=== PATIENT | female | born 1955 | race African-American/Black ===

== ENCOUNTER → 2016-12-26 | Outpatient (CLI) | payer BC, OTHER ==
[2016-09-04 15:00] VITALS: BP 114/60
[~2016-12-26] MED LIST: AMLO5TAB4 PO; ASPI-482 PO; BACL10TA PO; HYDR-971 PO; HYDR12.58 PO; IBUP-1007 PO; ONDA4TAB7 PO; PANT40TA3 PO
--- NOTE | 2016-12-26 11:21 | KCIC ---
Ankle left, three views Indication: Left ankle pain and swelling. Time of exam 11:05 a.m. Three views of the left ankle were obtained. The alignment is normal. Ankle mortise is well maintained. The talar dome is smooth. No fracture or dislocation is seen. There is a plantar calcaneal spur. There appears to be moderate soft tissue swelling both medially and laterally. Impression: Soft tissue swelling. No acute bony abnormality is detected. Electronically signed by: Elian Ordoñez MD (Dec 26, 2016 11:20:14)
== END | disposition home or self-care (01) ==
LOC: KCIC 10:51
PROVIDERS: ATTEND Family Medicine
DX: M25.572 Pain in left ankle and joints of left foot (principal)
CPT/HCPCS: 73610

== ENCOUNTER → 2017-01-01 | Outpatient (CLI) | payer BC, OTHER ==
[2016-09-04 15:00] VITALS: BP 114/60
--- NOTE | 2017-01-01 14:38 | KCIC ---
PROCEDURE MRI lumbar spine without contrast. HISTORY Low back pain radiating to left leg. Symptoms for 2-3 months. TECHNIQUE Sagittal T1, sagittal T2, sagittal STIR, axial T1, and axial T2 sequences are provided. COMPARISON None. FINDINGS There is mild levo curvature apex at L3-L4. There is no worrisome marrow lesion. There is minimal endplate edema at L4-L5. There is diffuse disc desiccation. There is narrowing of the interspace most notably at L3-L4 and L4-L5. Minimal subcutaneous edema is noted. Numbering system assumes 5 lumbar type vertebral bodies. Findings by individual level are as follows: L1-L2: Mild disc bulge and facet hypertrophy are noted with mild left foraminal narrowing. L2-L3: Disc bulge and mild facet hypertrophy are noted. Midline AP diameter of the thecal sac is 12 millimeters, minimally narrowed. There is mild right lateral recess narrowing. There is mild to moderate bilateral foraminal narrowing. L3-L4: There is a diffuse disc bulge. There is mild facet and ligamentum flavum hypertrophy. There is mild right lateral recess narrowing. There is no canal stenosis, midline AP diameter of the thecal sac 13 millimeters. Foraminal narrowing is high-grade on the right and mild to moderate on the left. L4-L5: There is a diffuse disc bulge. There is mild facet hypertrophy. Midline AP diameter of the thecal sac is narrowed to 11 millimeters. There is left lateral recess narrowing. There is moderate to severe foraminal narrowing. L5-S1: Disc bulge is eccentric to the right. There is facet hypertrophy. There is no canal stenosis. There is moderate to severe right foraminal narrowing. IMPRESSION Degenerative disc disease and facet hypertrophy are noted throughout the lumbar spine. There is no high-grade canal stenosis although there are several levels of foraminal narrowing, as described above. Electronically signed by: Donnell Bernal MD (Jan 01, 2017 14:37:29)
== END | disposition home or self-care (01) ==
LOC: KCIC MRI 12:42
PROVIDERS: ATTEND Family Medicine
DX: M51.36 Other intervertebral disc degeneration, lumbar region (principal)
CPT/HCPCS: 72148

== ENCOUNTER → 2017-01-29 | Outpatient (CLI) | payer BC, OTHER ==
[2016-09-04 15:00] VITALS: BP 114/60
--- NOTE | 2017-01-29 14:46 | KCIC ---
PROCEDURE MR of the left midfoot HISTORY Left foot pain at the tarsal region and across the top of the foot. Swelling. No known injury. Symptoms for 2 months. COMPARISON None TECHNIQUE Routine multiplanar sequences are obtained through the hindfoot and midfoot. FINDINGS Bone marrow edema within the distal, plantar talus. There is some poorly defined low T1 signal within the distal talus and centered within the edema, likely a nondisplaced fracture. This has an oblique sagittal morphology and does extend to the subchondral bone plate of the distal talus. Lisfranc ligament complex is intact as is tarsometatarsal alignment. No aggressive bone destruction. No significant joint effusion. Tarsal sinus is intact. Subtalar joints are patent. Talar dome is intact. No acute plantar fasciitis. Achilles tendon appears intact. The other visualized tendons no significant tendon sheath fluid. There is subcutaneous edema and swelling around the ankle greater posteriorly. Mild edema within the pre Achilles fat. There is loss of the normal longitudinal arch of the foot. Mild dorsal spurring at the talonavicular joint. IMPRESSION 1. Marrow edema or contusion of the distal talus with a suspected nondisplaced fracture. This could be confirmed with CT scan. 2. Soft tissue edema and swelling. Electronically signed by: Rolando Duron MD (January 29, 2017 14:45:34)
== END | disposition home or self-care (01) ==
LOC: KCIC MRI 12:19
PROVIDERS: ATTEND Podiatrist Foot & Ankle Surgery
DX: M79.672 Pain in left foot (principal); R60.0 Localized edema; M25.475 Effusion, left foot
CPT/HCPCS: 73721

== ENCOUNTER → 2017-03-26 | Outpatient (CLI) | payer BC, OTHER ==
[2016-09-04 15:00] VITALS: BP 114/60
--- NOTE | 2017-03-26 16:44 | KCIC ---
Bilateral digital screening mammograms: Reason for examination: Routine screening. Comparison is made to previous studies dated 03/26/2016 and 03/26/2015. The skin and nipples show no abnormalities. No abnormal axillary lymph nodes are seen. The breast parenchyma is heterogeneously dense. (Breast density: Category C.) There are no dominant masses, suspicious calcifications or architectural distortion. Impression: No evidence of malignancy. Recommend routine screening. Your patient's mammogram demonstrates that she has dense breast tissue (breast density category C or D), which could hide abnormalities, and if she has other risk factors for breast cancer that have been identified, she might benefit from supplemental screening tests that may be suggested by you as her ordering physician. Dense breast tissue, in and of itself, is a relatively common condition. Therefore, this information is not provided to cause undue concern, but rather to raise your awareness and to promote discussion with your patient regarding the presence of other risk factors, in addition to dense breast tissue. Your patient's mammography results will be sent to her. BI-RAD Category 1: Negative. "Our facility is accredited by the [employer] Mammography Program." This patient's information has been entered into a reminder system for the patient to be notified with the results of her examination and a target date for the next mammogram. Electronically signed by: Tiffanie Vitale MD (03/26/2017 4:41 PM) [id number]
== END | disposition home or self-care (01) ==
LOC: KCIC MAMMO 13:13
PROVIDERS: ATTEND Family Medicine
DX: Z12.31 Encounter for screening mammogram for malignant neoplasm of breast (principal)
CPT/HCPCS: G0202; 77067

== ENCOUNTER → 2017-04-22 | Outpatient (CLI) | payer BC, OTHER ==
[2016-09-04 15:00] VITALS: BP 114/60
--- NOTE | 2017-04-22 16:40 | RAD ---
Three-view left foot radiographs 04/22/2017 Clinical history: History of contusion of the left talus 4 months ago with left foot pain. AP, lateral and oblique digital radiographs of the left foot were obtained. Comparison is made to the patient's MRI of the left foot dated 01/29/2017. No acute fracture or dislocation of the left foot is seen. Mild to moderate degenerative changes are seen scattered throughout the interphalangeal joints of the left foot, the first MTP joint, the tarsometatarsal joints, mid tarsal joints and left ankle. Mild enthesophyte formation is seen involving the plantar aspect of the posterior left calcaneus. Impression: No acute fracture or dislocation of the left foot is seen.
== END | disposition home or self-care (01) ==
LOC: RAD 15:58
PROVIDERS: ATTEND Psychiatry & Neurology Neurology
DX: S82.892D Other fracture of left lower leg, subsequent encounter for closed fracture with routine healing (principal); X58.XXXD Exposure to other specified factors, subsequent encounter
CPT/HCPCS: 73630

== ENCOUNTER → 2017-06-03 | Outpatient (CLI) | payer BC, OTHER ==
[2016-09-04 15:00] VITALS: BP 114/60
--- NOTE | 2017-06-03 15:55 | KCIC ---
Examination: MRI of the left ankle without contrast HISTORY: History of healing of close nondisplaced fracture of the talus, pain in the medial aspect COMPARISON: 01/29/2017 TECHNIQUE: Multiplanar, multisequence MR imaging of the left ankle was performed without contrast. Findings: The attachment of the Achilles tendon to the calcaneus grossly appears intact. The attachment of the plantar fascial to inferior aspect of the calcaneus grossly appears intact. The ankle mortise grossly appears intact. There is bone marrow edema identified in the distal aspect of the plantar talus demonstrating linear low T1 and high T2 signal grossly similar to prior exam could be stress reactive change or nondisplaced fracture grossly similar to prior exam, with subchondral cysts. There is mild dorsal spurring of the talonavicular joint. Fat is present within the sinus tarsi. The visualized flexor tendons, peroneal tendons, anterior extensor compartment tendons grossly appears unremarkable. The visualized Lisfranc ligament appears intact. There is mild increased T2 signal likely edema identified in the soft tissue about the ankle joint. The visualized anterior, posterior talofibular ligament, anterior and posterior tibiofibular ligaments appear intact. Small ankle joint effusion is identified particularly in the anterolateral aspect. The visualized deltoid ligament, tibial spring ligament grossly appears intact. The visualized calcaneofibular ligament appears intact. IMPRESSION: 1. Bone marrow edema identified in the distal aspect of the plantar talus demonstrating linear low T1 and high T2 signal grossly similar to prior exam could be stress reactive change or nondisplaced fracture grossly similar to prior exam, with subchondral cysts. CT scan may be useful for better evaluation. 2. Mild nonspecific soft tissue edema identified about the ankle joint. Small ankle joint effusion. Electronically signed by: Leonardo Bonilla MD (06/03/2017 3:51 PM) [id number]
== END | disposition home or self-care (01) ==
LOC: KCIC MRI 14:27
PROVIDERS: ATTEND Nurse Practitioner Gerontology
DX: S92.102D Unspecified fracture of left talus, subsequent encounter for fracture with routine healing (principal); M25.472 Effusion, left ankle; X58.XXXD Exposure to other specified factors, subsequent encounter
CPT/HCPCS: 73721

== ENCOUNTER → 2018-03-29 | Outpatient (CLI) | payer BC, OTHER | END | disposition home or self-care (01) | LOC: KCIC MAMMO 10:49 | DX: Z12.31 Encounter for screening mammogram for malignant neoplasm of breast (principal); E55.9 Vitamin D deficiency, unspecified; I10 Essential (primary) hypertension; E78.5 Hyperlipidemia, unspecified; K21.9 Gastro-esophageal reflux disease without esophagitis; E87.6 Hypokalemia | CPT/HCPCS: 77063; 77067 ==

== ENCOUNTER → 2018-04-08 | Outpatient (CLI) | payer BC, OTHER | END | disposition home or self-care (01) | LOC: KCIC US 13:09 | DX: R92.8 Other abnormal and inconclusive findings on diagnostic imaging of breast (principal); E55.9 Vitamin D deficiency, unspecified; E78.5 Hyperlipidemia, unspecified; I10 Essential (primary) hypertension; E87.6 Hypokalemia; K21.9 Gastro-esophageal reflux disease without esophagitis; I08.1 Rheumatic disorders of both mitral and tricuspid valves; M17.11 Unilateral primary osteoarthritis, right knee | CPT/HCPCS: 76641 ==

== ENCOUNTER → 2018-08-09 | Outpatient (CLI) | payer BC, OTHER ==
[2016-09-04 15:00] VITALS: BP 114/60
[~2018-08-09] MED LIST changes: +HYDR-3164 PO; -HYDR-971 PO
--- NOTE | 2018-08-09 16:50 | KCIC ---
LIMITED BILATERAL GROIN SONOGRAPHY INDICATIONS: Enlarged lymph nodes. Follow-up study. COMPARISON: April 05, 2018. Right groin: Multiple lymph nodes of the right groin are seen and the largest measures 9 mm in size and demonstrates normal lymph node sonographic architecture. The previously seen prominent right groin lymph node is not evident today and demonstrated normal lymph node sonographic architecture on the previous study. Left groin: Multiple lymph nodes of the left groin are seen. The largest measures 21 mm in size. It is fatty replaced consistent with normal lymph node sonographic architecture. It measured 15 mm on the previous study. IMPRESSION: Bilateral groin lymph nodes which demonstrate normal lymph node sonographic architecture. Recommend clinical correlation with regard to any growth in size of any palpable lymph nodes. Electronically signed by: Gaston Sinclair MD (08/09/2018 4:47 PM) [id number]
== END | disposition home or self-care (01) ==
LOC: KCIC US 15:13
PROVIDERS: ATTEND Family Medicine
DX: R59.1 Generalized enlarged lymph nodes (principal)
CPT/HCPCS: 76882

== ENCOUNTER → 2018-10-15 | Outpatient (CLI) | payer BC, OTHER ==
[2016-09-04 15:00] VITALS: BP 114/60
[~2018-10-15] MED LIST changes: +IOHEXOL 240 MG/ML 50ML VIAL. PO ONE; +IOHEXOL 300 MG/ML 100ML VIAL. IV ONE; +MOME13HF2 IH; -PANT40TA3 PO; +PANT40TA77 PO
--- NOTE | 2018-10-15 12:27 | RAD ---
EXAM: CT Chest, Abdomen and Pelvis with IV contrast CLINICAL HISTORY: bilateral groin pain, lymphadenopathy COMPARISON: 09/02/2016. TECHNIQUE: Helical CT of the chest, abdomen and pelvis was performed following the administration of intravenous contrast. Oral contrast was administered. Axial, coronal and sagittal reformatted images were generated. ---PQRS compliance statement - One or more of the following individualized dose reduction techniques were utilized for this study: 1. Automated exposure control 2. Adjustment of the mA and/or kV according to patient size 3. Use of iterative reconstruction technique--- FINDINGS: Chest: The heart is not enlarged. No pericardial effusion. No pleural effusion or pneumothorax. No thoracic lymphadenopathy by size criteria. A few prominent mediastinal and axillary lymph nodes are seen, for example a precarinal lymph node measures 1.1 x 0.7 cm. Small hiatal hernia. Bilateral emphysematous changes are seen. No lobar consolidation. No suspicious lung nodule or mass is seen. Abdomen and Pelvis: No focal liver lesion. Gallbladder is normal. No biliary ductal dilatation. Spleen is unremarkable. Adrenal glands are normal. Pancreas is unremarkable. Symmetric nephrograms. No focal renal lesion. No hydronephrosis. No hydroureter. Bladder is unremarkable. Bilateral external iliac chain lymph nodes prior, normal in size, the left external iliac lymph node measures 1.3 x 0.9 cm in the right external iliac lymph node measures 1 x 0.8 cm. Several other smaller inguinal lymph nodes are seen. Moderate colonic stool content is seen. No small or large bowel dilatation to suggest bowel obstruction. No abdominal or pelvic ascites. No pneumoperitoneum. Small fat-containing periumbilical hernia is seen. Bones: SI joint degenerative changes are seen. Degenerative changes of the spine are seen. No definite aggressive osseous lesion is noted. Thoracolumbar scoliosis. IMPRESSION: 1. A few prominent external iliac chain and inguinal lymph nodes are seen, not enlarged by size criteria. Also, a few prominent mediastinal and left axillary lymph nodes are seen, also not enlarged by size criteria. No thoracic, abdominal or pelvic lymphadenopathy. Given size these may be reactive. Consider follow-up to establish stability as clinically indicated. 2. No evidence for bowel obstruction. 3. Thoracolumbar scoliosis. Electronically signed by: Venkat Howard MD (10/15/2018 12:22 PM) [facility]
== END | disposition home or self-care (01) ==
LOC: CT 09:47
PROVIDERS: ATTEND Internal Medicine Hematology & Oncology
DX: K42.9 Umbilical hernia without obstruction or gangrene (principal); J43.9 Emphysema, unspecified; M41.85 Other forms of scoliosis, thoracolumbar region; Z88.8 Allergy status to other drugs, medicaments and biological substances
CPT/HCPCS: 71260; 74177; Q9966; Q9967

== ENCOUNTER → 2019-07-29 | Outpatient (CLI) | payer BC, OTHER ==
[2018-12-14 11:14] VITALS: BP 121/64
[~2019-07-29] MED LIST changes: -IOHEXOL 240 MG/ML 50ML VIAL. PO ONE; -IOHEXOL 300 MG/ML 100ML VIAL. IV ONE
--- NOTE | 2019-07-29 15:22 | KCIC ---
MRI Lumbar Spine without contrast History: Lumbar degenerative disc disease, low back pain since June Technique: Multiplanar, multi sequential noncontrast MR imaging was performed of the lumbar spine. Comparison: January 01, 2017 Findings: There is some motion degradation. Lumbar vertebral body stature is overall maintained. There is mild S-shaped scoliosis of the lumbar spine. There is mild left lateral subluxation L4 relative L5. AP alignment is overall within normal limits. Conus terminates at L1. There is variable moderate to severe L2-3 through L4-5 degenerative disc disease, [id number] L1-L2 and L5-S1 degenerative disc disease. There is mild endplate edema at L3-4 and L4-5 likely reactive/degenerative in etiology. L1-L2: There is again minimal bulge. There is mild buckling of the ligamentum flavum and facet degenerative change. There is mild narrowing of the left neural foramen, right neural foramen adequate. Spinal canal is adequate. L2-L3: There is again disc osteophyte complex and bulge. There is very mild narrowing of the far right lateral recess. There is mild buckling of the ligamentum flavum and facet degenerative change. There is [id number] narrowing of the right neural foramen, left neural foramen overall adequate. L3-L4: There is bulge greater in the right lateral recess with mild indentation upon the ventral thecal sac, again minimal narrowing of the far right lateral recess. Left neural foramen is adequate. Disc osteophyte complex and bulge/protrusion again contributes to fairly severe narrowing of the right neural foramen with contact of the exiting right L3 nerve root. L4-L5: There is mild facet degenerative change and buckling of the ligamentum flavum. There is again disc osteophyte complex and bulge. There is similar mild narrowing of the far left lateral recess. Disc osteophyte complex and bulge again contributes to severe narrowing of the right neural foramen with impingement of the exiting right L4 nerve root. There is also severe narrowing of the left neural foramen primarily from posteriorly by facet. L5-S1: There is again minimal posterior bulge. Spinal canal is adequate. There is mild facet degenerative change. There is minimal narrowing of the left neural foramen. There is again moderate to severe narrowing of the more distal right neural foramen with contact of the undersurface exiting right L5 nerve root by disc osteophyte complex in the distal neural foramen and proximal extraforaminal region. Impression: 1. There is multilevel moderate to severe degenerative disc disease greatest L2-3 through L4-5. There is mild S-shaped scoliosis of the lumbar spine. 2. There is multilevel neural foramina compromise, more significant narrowing on the right at L3-4, L4-5, L5-S1 and on the left at L4-5. 3. There is mild narrowing of the lateral recesses of the right at L2-3 and L3-4 and on the left at L4-5. Electronically signed by: Judd Roberts MD (07/29/2019 3:19 PM) [facility]
== END | disposition home or self-care (01) ==
LOC: KCIC MRI 13:42
PROVIDERS: ATTEND Family Medicine
DX: M51.36 Other intervertebral disc degeneration, lumbar region (principal); M51.27 Other intervertebral disc displacement, lumbosacral region; M47.817 Spondylosis without myelopathy or radiculopathy, lumbosacral region; M48.07 Spinal stenosis, lumbosacral region; M41.86 Other forms of scoliosis, lumbar region; M25.78 Osteophyte, vertebrae; M53.2X6 Spinal instabilities, lumbar region
CPT/HCPCS: 72148

== ENCOUNTER → 2019-09-13 | Outpatient (CLI) | payer BC, OTHER ==
[2018-12-14 11:14] VITALS: BP 121/64
[~2019-09-13] MED LIST changes: +CYCL10TA2 PO; +FLUT100D IH; +IOHEXOL 180 MG/ML 10 ML VIAL. ONE; +NAPR-683 PO; +OMEP40CA45 PO; +methylPREDNISolone ACETATE 40 MG/ML VIAL. ONE; +methylPREDNISolone ACETATE 80 MG/ML VIAL. ONE
--- NOTE | 2019-09-14 02:05 | PAIN ---
DATE OF SERVICE: 09/13/2019 INITIAL CONSULTATION FOR PAIN CLINIC CHIEF COMPLAINT: Lumbar radiculopathy with low back and right lower extremity pain. HISTORY OF PRESENT ILLNESS: This is a 63-year-old female who presents with history of pain for about 5 months, not a result of any specific injury or accident that she is aware of, but her pain in the low back and right leg and anterior lateral thigh, anterior medial thigh, medial lower leg and across the low back, mostly on the right side. The patient also has some pain in the neck and left upper extremity and shoulder. Her main complaint is low back and right lower extremity pain. The patient reports no injury. The patient reports it came up over time. Reports it does not awaken her from sleep at night, does not affect her bowel or bladder control or ability to walk, but it is much worse with standing, walking, sitting for prolonged periods, better with sitting or lying down. The patient reports the pain is becoming more constant, more sharp and stabbing in the back and radiating and aching in the leg itself. The patient reports her disability is from 0-10, 10 being the worst, it is a 6/10 with home responsibilities, social activity, occupation, 8 with recreation, 5 with sexual behavior, 1 with self-care and 1 with life support activities. The patient did have an MRI scan of the lumbar spine showing at L4-L5 and L5-S1 disk bulge with mild narrowing of left far lateral recess at L4-L5 and disk complex bulge contributing to severe narrowing of the right neural foramen with impingement of exiting right L4 nerve root, also severe narrowing of the left neural foramen, primarily from posterior by the facets. L5-S1 shows minimal posterior disk bulge with [id number] narrowing of the more distal right neural foramen with contacted undersurface exiting right L5 nerve root by disk osteophyte complex. The patient reports she has had chiropractic treatment, which helped for a while. She has had no formal physical therapies. She is doing some exercises, stretching on her own as well. The patient has tried prednisone, cyclobenzaprine, naproxen, all of which did decrease the pain by only about 20% or so where the prednisone was about 50%. The patient reports no loss of motor function, but significant fatigability with right lower extremity. PAST MEDICAL HISTORY: Significant for hypertension, weight loss, gastroesophageal reflux, dizziness, and arthritis. PREVIOUS SURGERIES: Include right knee scope. CURRENT MEDICATIONS: Include Flexeril, Naprosyn, amlodipine, omeprazole, Dulera, and fluticasone. ALLERGIES: THE PATIENT IS ALLERGIC TO [employer] INHIBITORS. SOCIAL HISTORY: The patient drinks very little alcohol, may be once a week, does not smoke, does not use any illegal, illicit or recreational drugs. She is , lives with her spouse, and lives locally in [place], [place]. FAMILY HISTORY: Significant for no major medical problems or conditions that she is aware of. REVIEW OF SYSTEMS: The patient's review of systems is positive for those items as mentioned in history of present illness. All systems reviewed and otherwise negative. It is complete, full and well documented on the patient's chart. PHYSICAL EXAMINATION: VITAL SIGNS: The patient's blood pressure is 157/84, pulse is 76, respirations 18, temperature is 97.7 degrees Fahrenheit, height is 5 feet 4 inches, and weight is 156 pounds. GENERAL: The patient is awake, alert, oriented, appropriate, very pleasant demeanor. HEENT: Shows normocephalic, atraumatic. Extraocular movements are intact and symmetrical. Oral cavity: Mucous membranes are moist and pink. Dentition is intact. NECK: Shows anterior throat supple without palpable lymphadenopathy noted. Swallow reflex is symmetrical. CHEST: Shows normal on inspection. Breath sounds are clear bilaterally. HEART: Shows S1, S2 clear. No murmurs auscultated. ABDOMEN: Soft, nontender, nondistended. No palpable organomegaly is noted. There is no rebound or guarding demonstrated. BACK: Shows spine grossly in the midline. Normal appearing thoracic kyphosis, cervical lordotic curvature and lumbar lordotic curvature. Lumbar paraspinous muscle shows symmetrical on inspection, with palpation shows some mild tenderness, only diffusely in the low lumbar distribution, slightly more on the right than the left, but without asymmetry, without atrophy, hypertrophy or trigger points. No radiation of pain is demonstrated. The patient shows good rotation of the lumbar spine, both laterally greater than 10 degrees right and left as well as extension greater than 10 degrees, forward flexion 45 degrees without significant pain or difficulty. EXTREMITIES: The patient's lower extremities show deep tendon reflexes at 2+ in the patellar, 1+ tendo-calcaneus tendons. Motor exam is strong with approximately 4 on a scale of 5 right dorsiflexion, extension 5/5 on the left. Quadriceps and hamstring flexion 5/5 and equal bilaterally. Peripheral pulses are 1+ posterior tibial. No peripheral edema is noted. The patient's lower extremities are warm and dry to touch, equal in color and appearance. Peripheral pulses are 1+ posterior tibia and dorsalis pedis pulses. No peripheral edema is noted bilaterally. Straight leg raise is noted to be negative bilaterally for reproduction of radicular symptoms as is Gaenslen's and Tim's maneuvers bilaterally also negative. The patient is able to stand, stand on her toes without difficulty or loss of balance, walks with a normal appearing gait, does not appear to favor the right or left lower extremity significantly with a short distance in the office, not using any assistive devices to ambulate. SKIN: Shows warm and dry, good turgor. No edema. No sores or rashes throughout. IMPRESSION: 1. This is a 63-year-old female with approximately 6-month history of increasing pain in low back, right lower extremity in a radicular fashion. 2. MRI scan of lumbar spine as noted. 3. Arthritis. 4. Hypertension. 5. Gastroesophageal reflux disease. PLAN: Options were discussed with the patient including conservative medical managements, physical therapies and interventional techniques and she would like to pursue interventional techniques. We discussed a lumbar epidural steroid injection using description as well as anatomical models to describe the procedure. Risks were then discussed including, but not limited to bleeding, infection, possibility of epidural hematoma, subsequent neurological compromise, dural puncture, headaches, spinal cord and/or nerve damage, side effects of steroid medication and poor results regarding pain control. The patient understands and wished to proceed. The patient will return to the clinic in approximately 2 weeks for followup. She was counseled as to return appointment, activity level and side effects to be aware of. DIAGNOSIS: Lumbar radiculopathy with lumbar degenerative disk disease. PROCEDURES: Lumbar epidural steroid injection, translaminar approach at L4-L5 level using C-arm fluoroscopic guidance under sterile prep and drape using local anesthetic. MEDICATION INJECTED: A total of 120 mg of Depo-Medrol plus 10 mL of preservative-free normal saline and 2 mL of contrast. CONDITION AT DISCHARGE: Stable. The patient tolerated procedure well, had no complications. MICHEAL GUZMAN MD DR: MELISSA/félix JOB#: [id number] / [id number] BRENDA Pablo MD
== END ==
LOC: PNCL 09:25
PROVIDERS: ATTEND Anesthesiology
DX: M51.16 Intervertebral disc disorders with radiculopathy, lumbar region (principal); I10 Essential (primary) hypertension; K21.9 Gastro-esophageal reflux disease without esophagitis; Z87.39 Personal history of other diseases of the musculoskeletal system and connective tissue; Z88.8 Allergy status to other drugs, medicaments and biological substances; Z72.89 Other problems related to lifestyle
CPT/HCPCS: 62323; J1030; J1040; Q9965

== ENCOUNTER → 2019-09-28 | Outpatient (CLI) | payer BC, OTHER ==
[2018-12-14 11:14] VITALS: BP 121/64
--- NOTE | 2019-09-28 23:42 | PAIN ---
DATE OF SERVICE: 09/28/2019 PROGRESS NOTE FOR PAIN CLINIC DIAGNOSES: Lumbar radiculopathy with lumbar degenerative disk disease. HISTORY OF PRESENT ILLNESS: The patient is a 63-year-old female who returns for followup status post lumbar epidural steroid injection x 1. The patient reports about 90% improvement for the first 2 weeks, pain is returning now in the low back and the right greater than left lower extremity. The patient reports it is much better in the leg, though with increasing her activity with greater ease and comfort, walking greater distances, doing work activities, household activities, sleeping better at night. The patient reports it occasionally awakens her from sleep, but only about every 6 hours and not every night. The patient reports it is a tight pain in the low back and the leg is doing much better, rates it as a 2 on a scale of 10 at its worst, 2 on average and 1 at its least and is a 1 today on a scale of 10. The patient reports no new motor or sensory deficits, no new bowel or bladder incontinence or other complaints. PHYSICAL EXAMINATION: VITAL SIGNS: The patient's blood pressure 162/63, pulse 75, respirations 18, temperature 98.2 degrees Fahrenheit, height is 5 feet 2 inches, weight is 150 pounds. GENERAL: The patient is awake, alert, oriented, appropriate, very pleasant demeanor. HEENT: Shows normocephalic, atraumatic. Extraocular movements are intact and symmetrical. Oral cavity: Mucous membranes moist and pink. Dentition is intact. NECK: Shows anterior throat supple without palpable lymphadenopathy noted. Swallow reflex symmetrical. CHEST: Shows normal on inspection. Breath sounds clear to auscultation bilaterally. HEART: Shows S1, S2 clear. No murmurs auscultated. ABDOMEN: Soft, nontender, nondistended. No palpable organomegaly is noted. No rebound or guarding demonstrated. BACK: Shows spine grossly in the midline. The patient's lumbar paraspinous muscle shows symmetrical on inspection, on palpation shows some moderate tenderness diffusely, but only diffusely without significant radiation. The patient has good rotational motion of lumbar spine, both laterally as well as extension and flexion without significant difficulty. EXTREMITIES: The patient's lower extremities show deep tendon reflexes 2+ in the patellar, 1+ tendo-calcaneus tendons. Motor exam is approximately 4 on a scale of 5 with right dorsiflexion, extension, 5/5 on the left. Peripheral pulses are 1+. No peripheral edema is noted bilaterally. Options were discussed with the patient. The patient's old chart was reviewed as her current medication regimen updated. Current review of systems updated today as well. We will proceed with a second lumbar epidural steroid injection today with fluoroscopic guidance. Risks were again discussed including, but not limited to bleeding, infection, possibility of epidural hematoma, subsequent neurologic compromise, dural puncture, headaches, spinal cord and/or nerve damage, side effects of steroid medication and poor results regarding pain control. The patient understands and wished to proceed. The patient will return to clinic in approximately 2 weeks for followup. She was counseled on return appointment, activity level and side effects to be aware of. DIAGNOSIS: Lumbar radiculopathy with lumbar degenerative disk disease. PROCEDURE: Lumbar epidural steroid injection, translaminar approach at L4-L5 level using C-arm fluoroscopic guidance under sterile prep and drape using local anesthetic. MEDICATION INJECTED: A total of 120 mg Depo-Medrol plus 10 mL of preservative-free normal saline and 2 mL of contrast. CONDITION AT DISCHARGE: Stable. The patient tolerated the procedure well, had no complications. MICHEAL GUZMAN MD DR: MELISSA/félix JOB#: [id number] / [id number]
== END ==
LOC: PNCL 12:49
PROVIDERS: ATTEND Anesthesiology
DX: M51.16 Intervertebral disc disorders with radiculopathy, lumbar region (principal)
CPT/HCPCS: 62323; J1030; J1040; Q9965

== ENCOUNTER → 2020-10-17 | Outpatient (CLI) | payer OTHER, MEDICARE ==
[2018-12-14 11:14] VITALS: BP 121/64
[~2020-10-17] MED LIST changes: -FLUT100D IH; +FLUT100D2 IH; -IOHEXOL 180 MG/ML 10 ML VIAL. ONE; -OMEP40CA45 PO; +OMEP40CA7 PO; -methylPREDNISolone ACETATE 40 MG/ML VIAL. ONE; -methylPREDNISolone ACETATE 80 MG/ML VIAL. ONE
--- NOTE | 2020-10-18 15:41 | CARD ---
MR#: [id number] Date of Study: 10/17/2020 Ordering Physician: PHANI HARDING, Referring Physician: PHANI HARDING, Tech: Chiara Tran SATHYA APPROVED REPORT EXAM: Two-dimensional and M-mode echocardiogram with Doppler and color Doppler. Other Information Quality : Good INDICATION Chest Pain 2D DIMENSIONS RVDd2.7 (2.9-3.5cm)Left Atrium(2D)3.4 (1.6-4.0cm) IVSd0.9 (0.7-1.1cm)Aortic Root(2D)2.6 (2.0-3.7cm) LVDd4.3 (3.9-5.9cm)LVOT Diameter1.9 (1.8-2.4cm) PWd0.9 (0.7-1.1cm)LVDs2.4 (2.5-4.0cm) FS (%) 30.0 %SV60.4 ml LVEF(%)60.0 (>50%) Aortic Valve AoV Peak Ramos.134.5cm/sAoV VTI28.8cm AO Peak GR.7.2mmHgLVOT Peak Ramos.122.3cm/s AO Mean GR.4mmHgAVA (VMAX)2.48cm2 GARRET (VTI)2.50cm2 Mitral Valve MV E Fqepbmoi19.3cm/sMV DECEL JEPZ082pk MV A Ainyqztv611.1cm/sE/A Ratio0.7 Tricuspid Valve TR P. Boigdsux857yg/sRAP VAOOCDBA6pzLi TR Peak Gr.08sdXyESFH99slZo Pulmonary Vein S1 Daqoyhml16.4cm/sD2 Eggamchv77.1cm/s LEFT VENTRICLE The left ventricle is normal size. There is normal left ventricular wall thickness. The left ventricu lar systolic function is normal and the ejection fraction is within normal range. The Ejection Fracti on is 55-60%. There is normal LV segmental wall motion. Transmitral Doppler flow pattern is Grade I-a bnormal relaxation pattern. RIGHT VENTRICLE The right ventricle is normal size. The right ventricular systolic function is normal. ATRIA The left atrium size is normal. The right atrium size is normal. The interatrial septum is intact wit h no evidence for an atrial septal defect or patent foramen ovale as noted on 2-D or Doppler imaging. AORTIC VALVE The aortic valve is calcified but opens well. Doppler and Color Flow revealed no significant aortic r egurgitation. There is no significant aortic valvular stenosis. MITRAL VALVE The mitral valve is calcified but opens well. There is no evidence of mitral valve prolapse. There is no mitral valve stenosis. Doppler and Color-flow revealed trace to mild mitral regurgitation. TRICUSPID VALVE The tricuspid valve is normal in structure and function. Doppler and Color Flow revealed trace to mil d tricuspid regurgitation. The PA pressure was estimated at 28 mmHg. There is no tricuspid valve sten osis. PULMONIC VALVE Doppler and Color Flow revealed trace pulmonic valvular regurgitation. There is no pulmonic valvular stenosis. GREAT VESSELS The aortic root is normal in size. The ascending aorta is normal in size. The IVC is normal in size a nd collapses >50% with inspiration. PERICARDIAL EFFUSION There is no evidence of significant pericardial effusion. Critical Notification Critical Value: No <Conclusion> The left ventricular systolic function is normal and the ejection fraction is within normal range. Th e Ejection Fraction is 55-60%. There is normal LV segmental wall motion. Signed by : Francisco Segovia, Electronically Approved : 10/18/2020 15:41:09
== END ==
LOC: ECHO 09:31
PROVIDERS: ATTEND Internal Medicine Cardiovascular Disease
DX: I08.3 Combined rheumatic disorders of mitral, aortic and tricuspid valves (principal)
CPT/HCPCS: 93306

== ENCOUNTER → 2021-05-07 | Outpatient (CLI) | payer OTHER, MEDICARE ==
[2018-12-14 11:14] VITALS: BP 121/64
--- NOTE | 2021-05-07 14:40 | KCIC ---
Bilateral digital screening mammograms with 3-D tomosynthesis: Reason for examination: Routine screening. Comparison is made to previous studies dated back to 03/23/2014. Bilateral mammograms in CC and oblique projections were obtained with 2-D imaging and 3-D tomosynthes is imaging on a Siemens Inspiration unit and reviewed on the workstation. Interpretation was made wit h the benefit of CAD. The skin and nipples show no abnormalities. No abnormal axillary lymph nodes are seen. The breast par enchyma is extremely dense. (Breast density: Category D.) There continues 2 be some asymmetric parenc hyma which is unchanged. There are no new dominant masses, suspicious calcifications or architectural distortion. Impression: No evidence of malignancy. Recommend routine screening. Your patient's mammogram demonstrates that she has dense breast tissue (breast density category C or D), which could hide abnormalities, and if she has other risk factors for breast cancer that have bee n identified, she might benefit from supplemental screening tests that may be suggested by you as her ordering physician. Dense breast tissue, in and of itself, is a relatively common condition. Therefo re, this information is not provided to cause undue concern, but rather to raise your awareness and t o promote discussion with your patient regarding the presence of other risk factors, in addition to d ense breast tissue. Your patient's mammography results will be sent to her. BI-RAD Category 2: Benign. "Our facility is accredited by the [employer] Mammography Program." This patient's information has been entered into a reminder system for the patient to be notified wit h the results of her examination and a target date for the next mammogram. Electronically signed by: Tiffanie Vitale MD (05/07/2021 2:37 PM) [facility]
== END ==
LOC: KCIC MAMMO 11:21
PROVIDERS: ATTEND Family Medicine
DX: Z12.31 Encounter for screening mammogram for malignant neoplasm of breast (principal)
CPT/HCPCS: 77063; 77067

== ENCOUNTER → 2021-07-02 | Outpatient (CLI) | payer OTHER, MEDICARE ==
[2018-12-14 11:14] VITALS: BP 121/64
--- NOTE | 2021-07-02 13:18 | KCIC ---
AP and Lateral Views of the Chest 07/02/2021 12:50 PM Indication: Reason: COUGH / Spl. Instructions: COUGH X ONE WEEK / History: Comparison: Chest radiograph September 02, 2016 Findings: There is no focal consolidation or infiltrate identified. The cardiomediastinal silhouette is within normal limits. There is no evidence of pneumothorax or pleural effusion. Reverse S scoliosi s of the thoracolumbar spine noted. No acute osseous abnormalities are identified. Impression: No evidence of acute cardiopulmonary process. Electronically signed by: Rhett Perea MD (07/02/2021 1:15 PM) [id number]
== END ==
LOC: KCIC 12:46
PROVIDERS: ATTEND Family Medicine
DX: R05.9 Cough, unspecified (principal)
CPT/HCPCS: 71046

== ENCOUNTER → 2021-10-24 | Outpatient (CLI) | payer OTHER, MEDICARE ==
[2018-12-14 11:14] VITALS: BP 121/64
[~2021-10-24] MED LIST changes: +CYCL10TA19 PO; -CYCL10TA2 PO
--- NOTE | 2021-10-24 09:32 | PDOC ---
Progress Note - Pain Clinic Date of Service: DOS: DATE: 10/24/21 TIME: 09:25 Diagnosis: Dx: Cervical radiculopathy with cervical degenerative disease Lumbar radiculopathy with lumbar degenerative disc disease History or Present Illness: HPI: 66-year-old female returns follow-up status post lumbar epidural steroid injection on September 28, 2019 patient reports she did very well about 90% improvement in the low back and right lower extremity, and continues with good relief currently. Patient reports she has an increase in activity with greater distance walking doing household activities with greater ease and comfort travel with greater ease as well her chief complaint today however is the pain the base the neck and the right upper extremity with a history of degenerative disc disease in the cervical spine as well. Patient reports that is her chief complaint of pain base the neck right shoulder rating to the right upper extremity into the posterior deltoid into the forearm and the hand and finger especially the thumb and first and second fingers patient reports is a 10 on scale 10 is worst average and least over the past week is a 10 today patient reports no specific injury or accident that she is aware of to cause the pain is just gradually built up over several months and is now present for about 6 months or more. Patient has done physical therapy exercises in the past and is still doing the exercises on her own currently. Patient reports she is putting heat application to the base the neck and shoulder as well as some massage techniques and pressure massage on the base of the neck and the right upper back however this is not decreasing the pain significantly. Patient is taking cyclobenzaprine 3 times daily which helps to about a 20% level also [id number] ibuprofen and Tylenol which helps by about 20 to 30% as well. Patient scribes pain is aching and sharp in the base the neck tight and shooting in the right upper extremity tingling and stabbing the right arm and can be constant severe with repetitive motions weightbearing reaching over the head with with weightbearing as well exacerbated the pain. Patient reports wakes her from sleep about every 4 hours on average. Patient reports no deficits but significant fatigability of the right hand and arm with repetitive motions compared to the left. Physical Exam: VS: Pressure is 134/93 pulse 80 respirations 18 temperature 98.0 F height 5 feet 2 inches weight 149 pounds. PE: PHYSICAL EXAMINATION: GENERAL: The patient is awake, alert, oriented, appropriate, very pleasant in demeanor HEENT: Shows normocephalic, atraumatic. Extraocular movements are intact and symmetrical. Oral cavity: Mucous membranes moist and pink. Dentition is intact. NECK: Shows anterior throat supple without palpable lymphadenopathy noted. Swallow reflex symmetrical. CHEST: Shows normal on inspection. Breath sounds are clear bilaterally, no rales rhonchi or wheezes auscultated. HEART: Shows S1, S2 clear. No murmurs auscultated. ABDOMEN: Soft, nontender, nondistended. No palpable organomegaly is noted. No rebound or guarding demonstrated. BACK: Shows spine grossly in the midline. Normal-appearing cervical lordotic curvature. Cervical paraspinous muscles show symmetrical with inspection, on palpation some moderate tenderness diffusely throughout the upper middle lower distribution the paraspinous muscles more on the right than the left with palpation but without specific trigger points or atrophy or hypertrophy. Patient shows good rotation motion cervical spine with exacerbation of pain the base the neck into the shoulder with far right lateral rotation past 45 degrees left is rotated without difficulty also full extension causes some minor pain in the base the neck on the right side forward flexion relieves the pain. There is slightly increased thoracic kyphosis, some flattening of the lumbar lordotic curvature. Lumbar paraspinous muscles show symmetrical on inspection, on palpation shows some moderate tenderness diffusely throughout the upper, middle and lower distribution of the paraspinous muscles without specific trigger points, without radiation of pain. The patient has good rotational motion of the lumbar spine, both laterally as well as extension and flexion without significant difficulty. No tenderness over the spinous processes, sacrum or sacroiliac regions. EXTREMITIES: Upper extremities show deep tendon reflexes 2+ in the bicep triceps tendons, motor exam is strong with hotel assistant general manager strength rated 5 out of 5 bicep and tricep flexion is 4-5 on the right 5-5 on the left peripheral pulses are 2+ radial. Shoulder shrug is strong and intact without loss of strength on r esistance as is abduction of the shoulders bilaterally at 90 degrees without loss of strength on resistance as well. Lower extremities show deep tendon reflexes 2+ in the patellar and tendo calcaneus tendons. Motor exam is 4 on a scale of 5 with right dorsiflexion, extension, quadriceps and hamstring flexion and 5/5 on the left. Peripheral pulses are 1 posterior tibial. No peripheral edema is noted bilaterally. Lower extremities are warm and dry to touch, equal in color and appearance. SKIN: Shows warm and dry, good turgor. No edema. No sores, rashes or bruising throughout. Procedure: Procedure: Options were discussed with the patient. Patient's old chart was reviewed as her current medication regimen updated current review of systems updated today as well. We will preauthorize patient for a cervical epidural steroid injection as she has clinical C6-7 level cervical radiculopathy. Patient will continue with stretching strengthening exercise as well as heat and massage applications as well as oral analgesics as currently. We will prescribe new medication of Medrol Dosepak with instructions side effects aware of discussed. Once authorized, patient will return to clinic for translaminar approach C6-7 level cervical epidural steroid injection with fluoroscopic guidance at that time. Medication Injected: Med Injected: None Condition at Discharge: Condition at Discharge: Condition at discharge is stable. MICHEAL GUZMAN MD Oct 24, 2021 09:32
== END | disposition home or self-care (01) ==
LOC: PNCL 08:59
PROVIDERS: ATTEND Anesthesiology
DX: M50.10 Cervical disc disorder with radiculopathy, unspecified cervical region (principal); M51.16 Intervertebral disc disorders with radiculopathy, lumbar region; I10 Essential (primary) hypertension; J45.909 Unspecified asthma, uncomplicated; K21.9 Gastro-esophageal reflux disease without esophagitis; Z79.899 Other long term (current) drug therapy; Z98.890 Other specified postprocedural states; Z88.8 Allergy status to other drugs, medicaments and biological substances; Z82.49 Family history of ischemic heart disease and other diseases of the circulatory system
CPT/HCPCS: 99212; G0463

== ENCOUNTER → 2021-11-06 | Outpatient (CLI) | payer OTHER, MEDICARE ==
[2018-12-14 11:14] VITALS: BP 121/64
[~2021-11-06] MED LIST changes: +ASPI-630 PO; +DEXAMETHASONE PRES.FREE 10 MG/ML VIAL. ONE; +ESOM20CA PO; +IOHEXOL 180 MG/ML 10 ML VIAL. ONE; +NAPR220C62 PO
--- NOTE | 2021-11-06 12:54 | PDOC4 ---
Procedure Note: ICD 10 Code: ICD 10 Code: M54.12 M50.30 Procedure Note: Patient was consented for cervical epidural steroid injection with fluoroscopic guidance. Risks were discussed including but not limited to: Bleeding, infection, possibility of epidural hematoma and subsequent neurological compromise, dural puncture, headaches, spinal cord and/or nerve damage, side effects of steroid medication, and poor results regarding pain control. Patient understands and wished to proceed. Procedure cervical epidural steroid injection at the C6-7 level, using local anesthetic under sterile prep and drape using C-arm fluoroscopic guidance under local anesthesia medications injected ; 20 mg dexamethasone +5 mL normal saline and 2 mL contrast; condition at discharge is stable patient tolerated procedure well. and had no complications MICHEAL GUZMAN MD Nov 06, 2021 12:54
--- NOTE | 2021-11-06 12:54 | PDOC ---
Progress Note - Pain Clinic Date of Service: DOS: DATE: 11/06/21 TIME: 12:50 Diagnosis: Dx: Cervical radiculopathy with cervical degenerative disc disease Lumbar radiculopathy with lumbar degenerative disc disease History or Present Illness: HPI: 66-year-old female returns for follow-up with the complaints of pain the base of the neck and right upper extremity to the hand and the fingers on the right side patient reports is a cramping pain is aching and tight can be constant on and off in intensity worse with activity reaching weight lifting repetitive motions and driving patient reports an 8 on scale 10 at all times average worst and least over the past week and is an 8 today patient reports it wakes her from sleep about every 3 hours or so at night reports no loss of motor function patient reports her low back is doing much better about 70% improved overall she had some treatment with that in 2019. Patient reports no motor deficits but significant weakness and fatigability of the right upper extremity with repetitive motions and even fine motor motions such as using buttons or snaps on her garment and twisting lids on containers. Physical Exam: VS: Blood pressure is 151/88 pulse 84 respirations 18 temperature 98.4 F height is 5 feet 2 inches weight 148 pounds. PE: PHYSICAL EXAMINATION: GENERAL: The patient is awake, alert, oriented, appropriate, very pleasant in demeanor HEENT: Shows normocephalic, atraumatic. Extraocular movements are intact and symmetrical. Oral cavity: Mucous membranes moist and pink. Dentition is intact. NECK: Shows anterior throat supple without palpable lymphadenopathy noted. Swallow reflex symmetrical. CHEST: Shows normal on inspection. Breath sounds are clear bilaterally, no rales rhonchi or wheezes auscultated. HEART: Shows S1, S2 clear. No murmurs auscultated. ABDOMEN: Soft, nontender, nondistended. No palpable organomegaly is noted. BACK: Shows spine grossly in the midline. Normal-appearing cervical lordotic curvature. Cervical paraspinous muscles show symmetrical with inspection, on palpation some moderate tenderness diffusely bilaterally and inferior aspect cervical paraspinous posterior more on the right without specific trigger points. Patient shows good rotation motion cervical spine both laterally as well as full extension full forward flexion without significant pain reported. There is slightly increased thoracic kyphosis, some minor flattening of the lumbar lordotic curvature. Lumbar paraspinous muscles show symmetrical on inspection, on palpation shows some moderate tenderness diffusely throughout the upper, middle and lower distribution of the paraspinous muscles, without specific trigger points, without radiation of pain. The patient has good rotational motion of the lumbar spine, both laterally as well as extension and flexion without significant difficulty. No tenderness over the spinous proce sses, sacrum or sacroiliac regions. EXTREMITIES: Lower extremities show deep tendon reflexes 2 in the patellar and tendo calcaneus tendons. Motor exam is 4 on a scale of 5 with right dorsiflexion, extension, quadriceps and hamstring flexion and 5/5 on the left. Peripheral pulses are 1+ posterior tibial. No peripheral edema is noted bilaterally. Lower extremities are warm and dry to touch, equal in color and appearance. Upper extremities show deep tendon reflexes 2+ in the bicep and triceps tendons, motor exam is strong with 4 out of 5 department operations manager strength as well as bicep and tricep flexion and 5 out of 5 on the left. Peripheral pulses are 2+ radial bilaterally. SKIN: Shows warm and dry, good turgor. No edema. No sores, rashes or bruising throughout. Procedure: Procedure: Options were discussed with patient. Patient's old chart was reviewed as her c urrent medication regimen updated current review systems updated today as well. We will proceed with a cervical epidural steroid injection today with fluoroscopic guidance. Risks were discussed including but not limited to: Bleeding, infection, possibility of epidural hematoma and subsequent neurological compromise, dural puncture, headaches, spinal cord and/or nerve damage, side effects of steroid medication, and poor results regarding pain control. Patient understands and wished to proceed. Patient will return to clinic in approximately 2 weeks for follow-up, was counseled as to return appointment, active level, and side effects to be aware of. Medication Injected: Med Injected: Procedure cervical epidural steroid injection at the C6-7 level, using local anesthetic under sterile prep and drape using C-arm fluoroscopic guidance under local anesthesia medications injected ; 20 mg dexamethasone +5 mL normal saline and 2 mL contrast; condition at discharge is stable patient tolerated procedure well. and had no complications Condition at Discharge: Condition at Discharge: Condition at discharge is stable, patient tolerated the procedure well and had no complications. MICHEAL GUZMAN MD Nov 06, 2021 12:54
== END | disposition home or self-care (01) ==
LOC: PNCL 11:29
PROVIDERS: ATTEND Anesthesiology
DX: M50.10 Cervical disc disorder with radiculopathy, unspecified cervical region (principal); M54.12 Radiculopathy, cervical region; M51.16 Intervertebral disc disorders with radiculopathy, lumbar region; I10 Essential (primary) hypertension; J45.909 Unspecified asthma, uncomplicated; K21.9 Gastro-esophageal reflux disease without esophagitis; Z79.82 Long term (current) use of aspirin; Z79.899 Other long term (current) drug therapy; Z98.890 Other specified postprocedural states; Z88.8 Allergy status to other drugs, medicaments and biological substances
CPT/HCPCS: 62321; J1100; Q9965